=== PATIENT | male | born 1980 | race Hispanic/Latino ===

== ENCOUNTER 2024-07-12 07:37 | Emergency (ER) | payer BC ==
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
--- NOTE | 2024-07-12 08:01 | ER ---
Nurse's Notes [facility] Name: Josesito Goldsmith Age: 43 yrs Sex: Male : 1980 Arrival Date: 07/12/2024 Time: 07:37 Bed 17 Private MD: Diagnosis: Ocular pain, right eye Presentation: 07/12 07:49 Chief complaint: Patient states: right eye pain, redness, swelling and blurry vision x2 kc6 weeks. states he has been seeing an eye doctor and they gave him eye drops but has no improvement. Coronavirus screen: At this time, the client does not indicate any symptoms associated with coronavirus-19. Ebola Screen: No symptoms or risks identified at this time. Initial Sepsis Screen: Does the patient meet any 2 criteria? No. Patient's initial sepsis screen is negative. Does the patient have a suspected source of infection? No. Patient's initial sepsis screen is negative. Risk Assessment: Do you want to hurt yourself or someone else? Patient reports no desire to harm self or others. Onset of symptoms was July 12, 2024. 07:49 Method Of Arrival: Ambulatory [facility] 07:49 Acuity: SHELLIE 4 kc6 Historical: - Allergies: 07:51 No Known Allergies; kc6 - PMHx: 07:51 Diabetes mellitus; Hypertensive disorder; kc6 - PSHx: 07:51 None; kc6 - Immunization history:: Adult Immunizations up to date. - Infectious Disease History:: Denies. - Social history:: Smoking status: Patient reports the use of cigarette tobacco products, denies chronic smoking, but will smoke occasionally. Screenin:51 [facility] ED Fall Risk Assessment (Adult) History of falling in the last 3 months, kc6 including since admission No falls in past 3 months (0 pts) Confusion or Disorientation No (0 pts) Intoxicated or Sedated No (0 pts) Impaired Gait No (0 pts) Mobility Assist Device Used No (0 pt) Altered Elimination No (0 pt) Score/Fall Risk Level 0 - 2 = Low Risk Oriented to surroundings. Abuse screen: Denies threats or abuse. Denies injuries from another. Nutritional screening: No deficits noted. Tuberculosis screening: No symptoms or risk factors identified. Assessment: 07:51 General: Appears in no apparent distress. comfortable, well groomed, well developed, kc6 Behavior is calm, cooperative, appropriate for age. Pain: Complains of pain in right eye. Neuro: Level of Consciousness is awake, alert, obeys commands, Oriented to person, place, time, situation, Appropriate for age. Cardiovascular: Capillary refill < 3 seconds. Respiratory: Airway is patent Trachea midline Respiratory effort is even, unlabored, Respiratory pattern is regular, symmetrical. GI: No signs and/or symptoms were reported involving the gastrointestinal system. : No signs and/or symptoms were reported regarding the genitourinary system. EENT: Reports blurred vision in iris of right eye pain in right eye. Derm: No signs and/or symptoms reported regarding the dermatologic system. Skin is intact, is healthy with good turgor, Skin is pink, warm \T\ dry. Musculoskeletal: No signs and/or symptoms reported regarding the musculoskeletal system. Circulation, motion, and sensation intact. Capillary refill < 3 seconds, Range of motion: intact in all extremities. Vital Signs: 07:49 BP 139 / 78; Pulse 85; Resp 17 S; Pulse Ox 95% on R/A; Weight 90.72 kg (R); Height 6 kc6 ft. 2 in. (R); 07:49 Body Mass Index 25.68 (90.72 kg, 187.96 cm) kc6 ED Course: 07:41 Patient arrived in ED. mg5 07:45 Ashley Sepulveda, YESSI is Primary Nurse. kc6 07:45 Felix Alvarez DO is Attending Physician. ms3 07:51 Triage completed. kc6 07:51 Arm band placed on. kc6 07:51 Patient has correct armband on for positive identification. Bed in low position. Call kc6 light in reach. Side rails up X 1. Adult w/ patient. Pulse ox on. NIBP on. Door closed. Noise minimized. Lights dimmed. Pillow given. 08:00 Wilmer Kennedy MD is Referral Physician. ms3 08:08 No provider procedures requiring assistance completed. Patient did not have IV access kc6 during this emergency room visit. Patient maintains SpO2 saturation greater than 95% on room air. Administered Medications: No medications were administered Medication: 08:08 VIS not applicable for this client. kc6 Outcome: 08:00 Discharge ordered by . ms3 08:08 Discharged to home ambulatory, with significant other, kc6 08:08 Condition: good 08:08 Discharge instructions given to patient, significant other, Instructed on discharge instructions, follow up and referral plans. Demonstrated understanding of instructions, follow-up care, 08:08 Patient left the ED. kc6 Signatures: Felix Alvarez DO DO ms3 Ashley Sepulveda, RN RN kc6 Ofelia Shelton mg5
--- NOTE | 2024-07-12 08:08 | EDPHYS ---
Physician Documentation [facility] Name: Josesito Goldsmith Age: 43 yrs Sex: Male : 1980 Arrival Date: 07/12/2024 Time: 07:37 Bed 17 Private MD: ED Physician Felix Alvarez HPI: 07/12 08:01 This 43 yrs old Male presents to ER via Ambulatory with complaints of Eye mo3 Swelling. 08:01 43-year-old male with past medical history of diabetes, hypertension [place] [facility] [place] for right eye pain that began 2 weeks prior to arrival. Patient states he saw optometry and was referred to ophthalmology. Patient states he is having right eye pain, and blurry vision. Patient states on his way to work he noticed blurry vision causing him to come to the emergency department. He does endorse photophobia. Historical: - Allergies: 07:51 No Known Allergies; kc6 - PMHx: 07:51 Diabetes mellitus; Hypertensive disorder; kc6 - PSHx: 07:51 None; kc6 - Immunization history:: Adult Immunizations up to date. - Infectious Disease History:: Denies. - Social history:: Smoking status: Patient reports the use of cigarette tobacco products, denies chronic smoking, but will smoke occasionally. ROS: 08:01 Constitutional: Negative for fever, and chills. ms3 08:01 Cardiovascular: Negative for chest pain, and palpitations. Respiratory: Negative for shortness of breath, cough, wheezing, and pleuritic chest pain, Abdomen/GI: Negative for abdominal pain, nausea, vomiting, diarrhea, and constipation, MS/Extremity: Negative for injury and deformity, Skin: Negative for injury, rash, and discoloration, 08:01 Eyes: Positive for pain, swelling, Exam: 08:01 Visual Acuity: 20/100 right; 20/30 left, ms3 08:01 Constitutional: This is a well developed, well nourished patient who is awake, alert, and in no acute distress. Chest/axilla: Normal chest wall appearance and motion. Nontender with no deformity. Cardiovascular: Regular rate and rhythm with a normal S1 and S2. No gallops, murmurs, or rubs. Normal PMI, no JVD. No pulse deficits. Respiratory: Lungs have equal breath sounds bilaterally, clear to auscultation and percussion. No rales, rhonchi or wheezes noted. No increased work of breathing, no retractions or nasal flaring. Abdomen/GI: Soft, non-tender, with normal bowel sounds. No distension or tympany. No guarding or rebound. No evidence of tenderness throughout. Skin: Warm, dry with normal turgor. Normal color with no rashes, no lesions, and no evidence of cellulitis. 08:01 Eyes: Periorbital structures: appear normal, Pupils: equal, round, and reactive to light and accomodation, Extraocular movements: intact throughout, Conjunctiva: injected, in the left eye, Vital Signs: 07:49 BP 139 / 78; Pulse 85; Resp 17 S; Pulse Ox 95% on R/A; Weight 90.72 kg (R); Height 6 kc6 ft. 2 in. (R); 07:49 Body Mass Index 25.68 (90.72 kg, 187.96 cm) kc6 MDM: 07:59 Patient medically screened. ms3 08:01 Differential diagnosis: Corneal abrasion of Corneal ulcer of Acute iritis of Data ms3 reviewed: vital signs, nurses notes, and as a result, I will discharge patient. Management of patient was discussed with the following: Dormitory Keeper: Dr Kennedy- Will see in office. Counseling: I had a detailed discussion with the patient and/or guardian regarding the historical points, exam findings, and any diagnostic results supporting the discharge/admit diagnosis, the need for outpatient follow up, to return to the emergency department if symptoms worsen or persist or if there are any questions or concerns that arise at home. ED course: Discussed case with Dr. Kennedy and patient to go to his office for treatment. Patient understands and agrees with plan. All questions were answered. Return precautions discussed with patient. Return precautions discussed include worsening symptoms, or any other concerns. Administered Medications: No medications were administered Disposition: 10:43 Chart complete. ms3 Disposition Summary: 07/12/24 08:00 Discharge Ordered Notes: Location: Home ms3 Condition: Stable ms3 Diagnosis - Ocular pain, right eye ms3 Followup: ms3 - With: Wilmer Kennedy MD - When: Today - Reason: Recheck today's complaints Discharge Instructions: - Discharge Summary Sheet ms3 - Pain Without a Known Cause ms3 Forms: - Medication Reconciliation Form ms3 - Antibiotic Education ms3 - Prescription Opioid Use ms3 - Patient Portal Instructions ms3 - Leadership Thank You Letter ms3 Signatures: Felix Alvarez DO DO ms3 Ashley Sepulveda, RN RN kc6
[2024-07-12 08:12] VITALS: BP 139/78; O2SAT 95
== END 2024-07-12 08:08 | disposition home or self-care (01) ==
LOC: ER 07:37
DX: H57.11 Ocular pain, right eye (principal); F17.210 Nicotine dependence, cigarettes, uncomplicated
CPT/HCPCS: 99283

== ENCOUNTER 2024-10-13 21:46 | Emergency (ER) | payer BC ==
[2024-10-13 22:52] LABS: Specific Gravity 1.027 (1.005-1.030); Sqamous Epithelial None Seen /HPF (None Seen); Urine Bacteria None Seen /HPF (<20); Urine Bilirubin NEGATIVE (Negative); Urine Blood 1+ (Negative); Urine Clarity Clear (Clear); Urine Color Light-Yellow (Yellow); Urine Culture Reflex Order NOT NEEDED; Urine Glucose 4+ (Over) (Negative); Urine Ketones TRACE (Negative); Urine Microscopic Reflex YN ORDER UMIC; Urine Mucus 2+ /HPF (None Seen); Urine Nitrite NEGATIVE (Negative); Urine Protein TRACE (Negative); Urine RBC 21-50 /HPF (None Seen); Urine Urobilinogen Normal (Normal); Urine WBC <5 /HPF (<5); Urine pH 5.5 (5.0-7.0)
[2024-10-13 22:56] LABS: Absolute Basophils 0.1 K/uL (0-0.5); Absolute Eosinophils 0.1 K/uL (0-0.5); Absolute Lymphocytes (CBC) 1.3 K/uL (0.7-4.9); Absolute Monocytes 0.5 K/uL (0.1-1.3); Absolute Neutrophil 4.4 K/uL (1.8-8.0); Basophils % 1.5 % (0-1.3); Hematocrit 40.8 % (39.6-49.0); Hemoglobin 13.8 g/dL (13.6-17.9); Lymphocytes % 20.4 % (15.3-44.8); MCH 30.2 pg (27.0-35.0); MCHC 33.9 g/dL (32.0-36.0); MPV 8.8 fL (7.6-11.3); Monocytes % 7.5 % (3.3-12.3); Neutrophils % 68.6 % (41.7-73.7); Platelets 238 thou/uL (152-406); RBC Red Blood Cell Count 4.58 M/uL (4.33-5.43); Red Cell Distribution Width 13.3 % (12.1-15.2)
[2024-10-13] MEDS ORDERED: KETOROLAC 30 MG/ML INJ ONE (22:56)
[2024-10-13] MEDS ORDERED: NA CHLORIDE 0.9% 1,000 ML ONE (22:56)
[2024-10-13 23:06] LABS: Albumin 3.7 g/dL (3.4-5.0); Albumin/Globulin Ratio 0.8 (1.1-1.8); Anion Gap 8.6 mEq/L (5.0-15.0); Bilirubin Total 0.4 mg/dL (0.2-1.0); Globulin 4.6 g/dL (2.3-3.5); Potassium 3.6 mEq/L (3.5-5.1); Protein, Total 8.3 g/dL (6.4-8.2)
--- NOTE | 2024-10-14 01:09 | RAD REPORT ---
EXAM: CT Abdomen and Pelvis With Intravenous Contrast CLINICAL HISTORY: The patient is 44 years old and is Male; Abdominal pain. TECHNIQUE: Axial computed tomography images of the abdomen and pelvis with intravenous contrast. Sagittal and coronal reformatted images were created and reviewed. This CT exam was performed using one or more of the following dose reduction techniques: automated exposure control, adjustmen t of the mA and/or kV according to patient size, and/or use of iterative reconstruction technique. COMPARISON: None. FINDINGS: Lung bases: No acute infiltrate. ABDOMEN: Liver: No abnormality noted. Gallbladder and bile ducts: No calcified stones. No ductal dilation. Pancreas: Homogeneous enhancement. No mass, inflammation or ductal dilation. Spleen: No splenomegaly. Adrenals: No mass. Kidneys and ureters: Mild left perinephric edema and hydroureteronephrosis leading to a 4 mm tria ngular calculus in the distal left ureter, 2 cm proximal to the bladder. Nonobstructing 2 mm calyceal stone upper pole right kidney. Stomach and bowel: Grossly normal stomach. Nondilated and nonthickened bowel. PELVIS: Appendix: No findings to suggest acute appendicitis. Bladder: Mildly filled urinary bladder. Reproductive: Within normal limits. ABDOMEN and PELVIS: Intraperitoneal space: No abnormal extraluminal air or fluid. Bones/joints: No acute fracture or dislocation. No aggressive lesion. Soft tissues: Normal body wall soft tissues. Vasculature: No abdominal aortic aneurysm. Lymph nodes: No enlarged lymph nodes. IMPRESSION: 1. Left obstructive uropathy due to a 4 mm mm calculus in the distal left ureter. 2. Nonobstructing 2 mm calyceal stone upper pole right kidney. Electronically signed by: Trisha Cota MD 10/14/2024 12:23 AM [facility] Due to temporary technical issues with the [employer]ACS/[employer] reporting system, reports are being jennifer d by the in-house radiologist without review as a courtesy to ensure prompt reporting the interpreting radiologist is fully responsible for the content of the report. Transcribed Date/Time: 10/14/2024 1:09 AM
--- NOTE | 2024-10-14 01:22 | ER ---
Nurse's Notes [facility] Name: Josesito Goldsmith Age: 44 yrs Sex: Male : 1980 Arrival Date: 10/13/2024 Time: 21:46 Bed 3 Private MD: Christiano Cordon Diagnosis: Acute left distal ureteral calculus with hydronephrosis Presentation: 10/13 22:00 Chief complaint: Patient states: intermittent left flank pain that started yesterday. me1 At worst 10/10, sharp with associated n/v. Now 3/10 tender. Coronavirus screen: Vaccine status: Patient reports being unvaccinated. Ebola Screen: No symptoms or risks identified at this time. Initial Sepsis Screen: Does the patient meet any 2 criteria? HR > 90 bpm. No. Patient's initial sepsis screen is negative. Does the patient have a suspected source of infection? No. Patient's initial sepsis screen is negative. Risk Assessment: Do you want to hurt yourself or someone else? Patient reports no desire to harm self or others. Onset of symptoms was October 12, 2024. 22:00 Method Of Arrival: Ambulatory me1 22:00 Acuity: SHELLIE 3 me1 Triage Assessment: 22:02 General: Appears uncomfortable, well groomed, well developed, well nourished, Behavior me1 is calm, cooperative, appropriate for age. General:. Pain: Complains of pain in left flank Pain does not radiate. Pain currently is 3 out of 10 on a pain scale. at worst was 10 out of 10 on a pain scale. Quality of pain is described as tender, Pain began suddenly, 1 day ago. Is continuous. EENT: No signs and/or symptoms were reported regarding the EENT system. Neuro: Level of Consciousness is awake, alert, obeys commands, Oriented to person, place, time, situation, Appropriate for age. Cardiovascular: Patient's skin is warm and dry. Respiratory: Airway is patent Respiratory effort is even, unlabored, Respiratory pattern is regular, symmetrical. GI: Reports vomiting, once yesterday during episode when pain was severe. : Reports pain in left flank(s), Denies burning with urination, urinary frequency. Derm: Skin is intact, is healthy with good turgor, Skin is pink, warm \T\ dry. Musculoskeletal: No signs and/or symptoms reported regarding the musculoskeletal system. Historical: - Allergies: 22:02 No Known Allergies; me1 - PMHx: 22:02 diabetes mellitus; Hypertensive disorder; me1 - PSHx: 22:02 None; me1 - Immunization history:: Adult Immunizations up to date. - Infectious Disease History:: Denies. - Social history:: Smoking status: Patient denies any tobacco usage or history of. - Family history:: not pertinent. Screenin:19 [facility] ED Fall Risk Assessment (Adult) History of falling in the last 3 months, bm8 including since admission No falls in past 3 months (0 pts) Confusion or Disorientation No (0 pts) Intoxicated or Sedated No (0 pts) Impaired Gait No (0 pts) Mobility Assist Device Used No (0 pt) Altered Elimination No (0 pt) Score/Fall Risk Level 0 - 2 = Low Risk Oriented to surroundings, Maintained a safe environment, Educated pt \T\ family on fall prevention, incl call for assistance when getting out of bed, Assessed \T\ reinforced patient's understanding of fall precautions, Hourly rounding (assess needs \T\ fall precautionary measures) done, Used ambulatory aids as needed (educated on \T\ assisted with), Used gait belt as appropriate. Abuse screen: Denies threats or abuse. Nutritional screening: No deficits noted. Tuberculosis screening: No symptoms or risk factors identified. Assessment: :19 Reassessment: Patient appears in no apparent distress at this time. Patient and/or bm8 family updated on plan of care and expected duration. Pain level reassessed. Patient is alert, oriented x 3, equal unlabored respirations, skin warm/dry/pink. General: Appears in no apparent distress. comfortable, Behavior is calm, cooperative, appropriate for age. Pain: Complains of pain in left flank Pain currently is 2 out of 10 on a pain scale. Neuro: No deficits noted. Level of Consciousness is awake, alert, obeys commands, Oriented to person, place, time, situation, Appropriate for age. Cardiovascular: Denies chest pain, Capillary refill < 3 seconds in bilateral fingers Patient's skin is warm and dry. Respiratory: Airway is patent Respiratory effort is even, unlabored, Respiratory pattern is regular, symmetrical, Breath sounds are clear bilaterally. GI: No signs and/or symptoms were reported involving the gastrointestinal system. Abdomen is flat, non-distended. : Reports pain flank(s). EENT: No signs and/or symptoms were reported regarding the EENT system. Derm: No signs and/or symptoms reported regarding the dermatologic system. Musculoskeletal: No signs and/or symptoms reported regarding the musculoskeletal system. 23:42 Reassessment: Patient appears in no apparent distress at this time. Patient and/or bm8 family updated on plan of care and expected duration. Pain level reassessed. Patient is alert, oriented x 3, equal unlabored respirations, skin warm/dry/pink. Patient denies pain at this time. Patient states feeling better. 10/14 01:40 Reassessment: Patient appears in no apparent distress at this time. Patient and/or bm8 family updated on plan of care and expected duration. Pain level reassessed. Patient is alert, oriented x 3, equal unlabored respirations, skin warm/dry/pink. Patient denies pain at this time. Patient states feeling better. Patient states symptoms have improved. Vital Signs: 10/13 22:00 BP 154 / 89; Pulse 95; Resp 18; Temp 98.4; Pulse Ox 97% ; Weight 88.45 kg; Height 6 ft. me1 1 in. ; Pain 3/10; 22:19 BP 146 / 94; Pulse 99; Resp 18; Temp 98.4; Pulse Ox 97% ; Pain 2/10; bm8 23:42 BP 128 / 81; Pulse 88; Resp 17; Temp 98.4; Pulse Ox 98% ; Pain 0/10; bm8 10/14 01:40 BP 121 / 78; Pulse 90; Resp 18; Temp 98.4; Pulse Ox 97% ; Pain 0/10; bm8 10/13 22:00 Body Mass Index 25.73 (88.45 kg, 185.42 cm) me1 10/13 22:00 Pain Scale: Adult me1 22:19 Pain Scale: Adult bm8 23:42 Pain Scale: Adult bm8 10/14 01:40 Pain Scale: Adult bm8 [place] Coma Score: 10/13 22:19 Eye Response: spontaneous(4). Motor Response: obeys commands(6). Verbal Response: bm8 oriented(5). Total: 15. 23:42 Eye Response: spontaneous(4). Motor Response: obeys commands(6). Verbal Response: bm8 oriented(5). Total: 15. 12 01:40 Eye Response: spontaneous(4). Motor Response: obeys commands(6). Verbal Response: bm8 oriented(5). Total: 15. 19:36 Eye Response: spontaneous(4). Motor Response: obeys commands(6). Verbal Response: sp4 oriented(5). Total: 15. ED Course: 10/13 21:50 Patient arrived in ED. gm2 21:51 Christiano Cordon MD is Private Physician. gm2 21:54 Dio Sears MD is Attending Physician. sp4 22:02 Triage completed. me1 22:02 Arm band placed on Patient placed in an exam room. me1 22:14 Inserted saline lock: 18 gauge in right antecubital area, using aseptic technique. vk Blood collected. Flushed with 10 mL NS. 22:19 Doe Sanchez, RN is Primary Nurse. bm8 22:19 Patient has correct armband on for positive identification. Placed in gown. Bed in low bm8 position. Call light in reach. Side rails up X 1. Pulse ox on. NIBP on. Door closed. Noise minimized. Warm blanket given. Pillow given. Verbal reassurance given. Head of bed elevated. 22:19 No provider procedures requiring assistance completed. Patient maintains SpO2 bm8 saturation greater than 95% on room air. 23:27 CT Abd/Pelvis - IV Contrast Only In Process Unspecified. EDMS 10/14 01:21 Pradeep Rojas MD is Referral Physician. sp4 01:40 Provided Education on: post er care. bm8 01:40 IV discontinued, intact, bleeding controlled, No redness/swelling at site. Pressure bm8 dressing applied. Administered Medications: 10/13 23:02 Drug: Ketorolac IVP 30 mg IVP once Route: IVP; Site: right antecubital; bm8 23:46 Follow up: Response: No adverse reaction bm8 23:02 Drug: NS 0.9% IV 1000 ml IV at 1000 ml once; to be given as a bolus over 60 minutes bm8 Route: IV; Rate: 1000 ml; Site: right antecubital; 23:46 Follow up: Response: No adverse reaction; IV Status: Completed infusion; IV Intake: bm8 1000ml 10/14 01:39 Drug: Flomax PO 0.8 mg PO once Route: PO; bm8 01:41 Follow up: Response: No adverse reaction bm8 Medication: 10/13 22:19 VIS not applicable for this client. bm8 Intake: 23:46 IV: 1000ml; Total: 1000ml. bm8 Outcome: 10/14 01:22 Discharge ordered by . sp4 01:40 Discharged to home ambulatory, bm8 01:40 Condition: stable 01:40 Discharge instructions given to patient, family, Instructed on discharge instructions, follow up and referral plans. medication usage, safety practices, Demonstrated understanding of instructions, follow-up care, medications, Prescriptions given X 4, 01:41 Patient left the ED. bm8 Signatures: Dispatcher [employer] Dio Mock MD MD sp4 Marissa Snow, RN RN me1 Amna Boone gm2 Emma العراقي Brad, RN RN bm8
--- NOTE | 2024-10-14 01:22 | EDPHYS ---
Physician Documentation [facility] Name: Josesito Goldsmith Age: 44 yrs Sex: Male : 1980 Arrival Date: 10/13/2024 Time: 21:46 Bed 3 Private MD: Christiano Cordon ED Physician Dio Sears HPI: 10/13 21:54 This 44 yrs old Male presents to ER via Unassigned with complaints of Flank sp4 Pain. 10/14 19:36 44-year-old male presents with complaint of a left flank pain starting yesterday acute. sp4 Historical: - Allergies: 10/13 22:02 No Known Allergies; me1 - PMHx: 22:02 diabetes mellitus; Hypertensive disorder; me1 - PSHx: 22:02 None; me1 - Immunization history:: Adult Immunizations up to date. - Infectious Disease History:: Denies. - Social history:: Smoking status: Patient denies any tobacco usage or history of. - Family history:: not pertinent. ROS: 10/14 19:36 Constitutional: Negative for fever, chills, and weight loss, positive for left flank sp4 pain All other systems are negative, Exam: 19:36 Constitutional: This is a well developed, well nourished patient who is awake, alert, sp4 and in no acute distress. Head/Face: Normocephalic, atraumatic. Eyes: Pupils equal round and reactive to light, extra-ocular motions intact. Lids and lashes normal. Conjunctiva and sclera are not injected. Cornea within normal limits. Periorbital areas with no swelling, redness, or edema. ENT: Nares patent. No nasal discharge, no septal abnormalities noted. Tympanic membranes are normal and external auditory canals are clear. Oropharynx with no redness, swelling, or masses, exudates, or evidence of obstruction, uvula midline. Mucous membranes moist. Neck: Trachea midline, no thyromegaly or masses palpated, and no cervical lymphadenopathy. Supple, full range of motion without nuchal rigidity, or vertebral point tenderness. Chest/axilla: Normal chest wall appearance and motion. Nontender with no deformity. No lesions are appreciated. Cardiovascular: Regular rate and rhythm with a normal S1 and S2. No gallops, murmurs, or rubs. Normal PMI, no JVD. No pulse deficits. Respiratory: Lungs have equal breath sounds bilaterally, clear to auscultation and percussion. No rales, rhonchi or wheezes noted. No increased work of breathing, no retractions or nasal flaring. Abdomen/GI: Soft, with normal bowel sounds. No distension or tympany. No guarding or rebound. No evidence of tenderness throughout. Back: No spinal tenderness. No costovertebral tenderness. Skin: Warm, dry with normal turgor. Normal color with no rashes, no lesions, and no evidence of cellulitis. MS/ Extremity: Pulses equal, no cyanosis. Neurovascular intact. Full, normal range of motion. Neuro: Awake and alert, GCS 15, oriented to person, place, time, and situation. Cranial nerves II-XII grossly intact. Motor strength 5/5 in all extremities. Sensory grossly intact. Psych: Awake, alert, with orientation to person, place and time. Behavior, mood, and affect are within normal limits Vital Signs: 10/13 22:00 BP 154 / 89; Pulse 95; Resp 18; Temp 98.4; Pulse Ox 97% ; Weight 88.45 kg; Height 6 ft. me1 1 in. ; Pain 3/10; 22:19 BP 146 / 94; Pulse 99; Resp 18; Temp 98.4; Pulse Ox 97% ; Pain 2/10; bm8 23:42 BP 128 / 81; Pulse 88; Resp 17; Temp 98.4; Pulse Ox 98% ; Pain 0/10; bm8 10/14 01:40 BP 121 / 78; Pulse 90; Resp 18; Temp 98.4; Pulse Ox 97% ; Pain 0/10; bm8 10/13 22:00 Body Mass Index 25.73 (88.45 kg, 185.42 cm) me1 10/13 22:00 Pain Scale: Adult me1 22:19 Pain Scale: Adult bm8 23:42 Pain Scale: Adult bm8 10/14 01:40 Pain Scale: Adult bm8 [place] Coma Score: 10/13 22:19 Eye Response: spontaneous(4). Motor Response: obeys commands(6). Verbal Response: bm8 oriented(5). Total: 15. 23:42 Eye Response: spontaneous(4). Motor Response: obeys commands(6). Verbal Response: bm8 oriented(5). Total: 15. 10/14 01:40 Eye Response: spontaneous(4). Motor Response: obeys commands(6). Verbal Response: bm8 oriented(5). Total: 15. 19:36 Eye Response: spontaneous(4). Motor Response: obeys commands(6). Verbal Response: sp4 oriented(5). Total: 15. MDM: 10/13 21:55 Medical Screening Exam initiated sp4 10/14 01:16 ED course: EXAM: CTAbdomen and Pelvis With Intravenous Contrast CLINICAL HISTORY: The sp4 patient is 44 years old and is Male; Abdominal pain. TECHNIQUE: Axial computed tomography images of the abdomen and pelvis with intravenous contrast. Sagittal and coronal reformatted images were created and reviewed. This CT exam was performed using one or more of the following dose reduction techniques: automated exposure control, adjustment of the mA and/or kV according to patient size, and/or use of iterative reconstruction technique. COMPARISON: None. FINDINGS: Lung bases: No acute infiltrate. ABDOMEN: Liver: No abnormality noted. Gallbladder and bile ducts: No calcified stones. No ductal dilation. Pancreas: Homogeneous enhancement. No mass, inflammation or ductal dilation. Spleen: No splenomegaly. Adrenals: No mass. Kidneys and ureters: Mild left perinephric edema and hydroureteronephrosis leading to a 4 mm triangular calculus in the distal left ureter, 2 cm proximal to the bladder. Nonobstructing 2 mm calyceal stone upper pole right kidney. Stomach and bowel: Grossly normal stomach. Nondilated and nonthickened bowel. PELVIS: Appendix: No findings to suggest acute appendicitis. Bladder: Mildly filled urinary bladder. Reproductive: Within normal limits. ABDOMEN and PELVIS: Intraperitoneal space: No abnormal extraluminal air or fluid. Bones/joints: No acute fracture or dislocation. No aggressive lesion. Soft tissues: Normal body wall soft tissues. Vasculature: No abdominal aortic aneurysm. Lymph nodes: No enlarged lymph nodes. IMPRESSION: 1. Left obstructive uropathy due to a 4 mm mm calculus in the distal left ureter. 2. Non obstructing 2 mm calyceal stone upper pole right kidney. . 19:36 Differential diagnosis: nephrolithiasis, UTI, testicular torsion. Data reviewed: vital 4 signs, nurses notes, old medical records, lab test result(s), radiologic studies, CT scan. Consideration of Admission/Observation Escalation of care including admission/observation considered. ED course: Patient states pain has completely resolved. At this time stable for discharge home. . 10/13 22:30 Order name: CBC with Diff; Complete Time: 01:08 sp4 10/13 22:30 Order name: CMP; Complete Time: 01:08 sp4 10/13 22:30 Order name: Lipase; Complete Time: 01:08 sp4 10/13 22:30 Order name: Urinalysis w/ reflexes; Complete Time: 01:08 sp4 10/13 22:48 Order name: CRP; Complete Time: 01:08 sp4 10/13 22:48 Order name: CT Abd/Pelvis - IV Contrast Only sp4 10/13 22:30 Order name: IV Saline Lock; Complete Time: 22:34 sp4 10/13 22:30 Order name: Labs collected and sent; Complete Time: 22:34 sp4 Administered Medications: 10/13 23:02 Drug: Ketorolac IVP 30 mg IVP once Route: IVP; Site: right antecubital; bm8 23:46 Follow up: Response: No adverse reaction bm8 23:02 Drug: NS 0.9% IV 1000 ml IV at 1000 ml once; to be given as a bolus over 60 minutes bm8 Route: IV; Rate: 1000 ml; Site: right antecubital; 23:46 Follow up: Response: No adverse reaction; IV Status: Completed infusion; IV Intake: bm8 1000ml 10/14 01:39 Drug: Flomax PO 0.8 mg PO once Route: PO; bm8 01:41 Follow up: Response: No adverse reaction bm8 Disposition Summary: 10/14/24 01:22 Discharge Ordered Notes: Location: Home sp4 Problem: new sp4 Symptoms: have improved sp4 Condition: Stable sp4 Diagnosis - Acute left distal ureteral calculus with hydronephrosis sp4 Followup: sp4 - With: Pradeep Rojas MD - When: As needed - Reason: Discharge Instructions: - Discharge Summary Sheet sp4 - Kidney Stones, [id number] sp4 Forms: - Patient Portal Instructions sp4 Prescriptions: - acetaminophen-codeine 300-30 mg Oral tablet - take 1 tablet ORAL route every 8 hours PRN pain; 20 tablet; Refills: 0, Product sp4 Selection Permitted - tamsulosin 0.4 mg Oral capsule - take 1 capsule ORAL route once daily for 10 days; 10 capsule; Refills: 0, sp4 Product Selection Permitted - Ibuprofen 800 mg Oral Tablet - take 1 tablet ORAL route every 8 hours As needed take with food; 30 tablet; sp4 Refills: 0, Product Selection Permitted - ondansetron 8 mg Oral Tablet,disintegrating - take 1 tablet ORAL route every 8 hours PRN nausea; 30 tablet; Refills: 0, sp4 Product Selection Permitted Signatures: Dispatcher [employer] EDMS Dio Sears MD MD sp4 Marissa Snow, RN RN me1 Doe Sanchez RN RN bm8 Corrections: (The following items were deleted from the chart) 10/13 22:30 22:30 CBC+H.LAB.BRZ ordered. EDMS EDMS 22:30 22:30 COMPREHENSIVE METABOLIC PANEL+C.LAB.BRZ ordered. EDMS EDMS 22:30 22:30 LIPASE+C.LAB.BRZ ordered. EDMS EDMS 22:30 22:30 Urinalysis+U.LAB.BRZ ordered. EDMS EDMS
[2024-10-14] MEDS ORDERED: TAMSULOSIN 0.4 MG SR CAP ONE (01:35)
[2024-10-14 05:05] VITALS: TEMP 98.4
[2024-10-14 05:18] VITALS: BP 121/78; O2SAT 97
== END 2024-10-14 01:41 | disposition home or self-care (01) ==
LOC: ER 21:46
DX: N13.2 Hydronephrosis with renal and ureteral calculous obstruction (principal); E11.9 Type 2 diabetes mellitus without complications; I10 Essential (primary) hypertension
CPT/HCPCS: 96361; 85025; 81001; 36415; 83690; 80053; 86140; 74177; 96374; 99284; Q9967; J7030